=== PATIENT | female | born 1975 | race Caucasian/White ===

== ENCOUNTER → 2017-01-18 22:59 | Emergency (ER) | payer OTHER ==
[2017-01-18 22:59] VITALS: BMI 25.1
== END | disposition left against medical advice (07) ==
LOC: C.ER 22:59
DX: Z02.89 Encounter for other administrative examinations (principal); R10.9 Unspecified abdominal pain

== ENCOUNTER 2017-12-07 16:33 | Emergency (ER) | payer MEDICAID, OTHER ==
[2017-12-07 16:33] VITALS: BMI 25.1
[2017-12-07 16:53] VITALS: RESP 18
--- NOTE | 2017-12-07 17:53 | RAD ---
HISTORY: cough COMPARISON: Portable chest radiograph 10/07/2016 peer TECHNIQUE: Chest PA and lateral FINDINGS: LUNGS: No active pulmonary disease. There is interval clearing of hazy density at the inferior left lung zone. PLEURA: No significant pleural effusion identified. No pneumothorax apparent. CARDIOVASCULAR: Normal. OSSEOUS STRUCTURES: Mild scoliotic thoracic spinal changes again evident. VISUALIZED UPPER ABDOMEN: Normal. OTHER FINDINGS: None. IMPRESSION: No interval acute cardiopulmonary disease appreciated.
[2017-12-07] MEDS ORDERED: Sodium Chloride 0.9% 1,000 ML IV STA (18:07)
[2017-12-07 18:36] LABS: BASO % 0.6 % (0.0-2.0); EOS % 0.3 % (0.0-4.0); HEMOGLOBIN 13.1 g/dL (11.0-16.0); LYMPH # 0.9 K/uL (1.0-4.3); LYMPH % 17.8 % (20.0-40.0); MEAN CELL VOLUME 87.9 fL (81.0-99.0); MEAN CORPUSCULAR HEMOGLOBIN 30.1 pg (27.0-31.0); MEAN CORPUSCULAR HGB CONC 34.3 g/dL (33.0-37.0); MEAN PLATELET VOLUME 8.5 fL (7.2-11.7); MONO # 0.4 K/uL (0.0-0.8); MONO % 8.4 % (0.0-10.0); NEUT # 3.7 K/uL (1.8-7.0); NEUT % 72.9 % (50.0-75.0); NRBC % 0.1 % (0.0-2.0); RBC 4.36 Mil/uL (3.80-5.20); RED CELL DISTRIBUTION WIDTH 13.3 % (11.5-14.5); WHITE BLOOD COUNT 5.1 K/uL (4.8-10.8)
[2017-12-07 18:48] LABS: ALBUMIN 3.9 g/dL (3.5-5.0); ALT/SGPT 71 U/L (9-52); AST/SGOT 60 U/L (14-36); BLOOD UREA NITROGEN 10 mg/dL (7-17); CALCIUM 8.7 mg/dl (8.6-10.4); GFR AFRICAN-AMERICAN > 60; GFR NON-AFRICAN AMERICAN > 60
--- NOTE | 2017-12-07 20:40 | C.PDOC ---
History Of Present Illness 42 y/o female presents to the ED complaining of persistent flu-like symptoms. States she was given antibiotics (unknown) by her PMD for bronchitis asthma. Patient finished the course and taking steroids and cough medicine. Patient continues to complain of subjective fever, body aches, and occasional nausea. Time Seen by Provider: 12/07/17 17:06 Chief Complaint (Nursing): Flu-like Symptoms History Per: Patient History/Exam Limitations: no limitations Onset/Duration Of Symptoms: Days Current Symptoms Are (Timing): Still Present Past Medical History Reviewed: Historical Data, Nursing Documentation, Vital Signs Vital Signs: Last Vital Signs Temp 98.2 F 12/07/17 20:48 Pulse 84 12/07/17 20:48 Resp 18 12/07/17 20:48 BP 110/64 12/07/17 20:48 Pulse Ox 100 12/07/17 20:48 - Medical History PMH: Asthma, Bronchitis Denies: Diabetes, Hepatitis, HIV, HTN, Seizures, Sexually Transmitted Disease Surgical History: Appendectomy Family History: States: Unknown Family Hx - Social History Hx Tobacco Use: No Hx Alcohol Use: No Hx Substance Use: No - Immunization History Hx Tetanus Toxoid Vaccination: No Hx Influenza Vaccination: No Hx Pneumococcal Vaccination: No Review Of Systems Except As Marked, All Systems Reviewed And Found Negative. Constitutional: Positive for: Fever (subjective), Other (body aches) Cardiovascular: Negative for: Chest Pain Respiratory: Negative for: Shortness of Breath, Wheezing Gastrointestinal: Positive for: Nausea Physical Exam - Physical Exam Appears: Non-toxic, No Acute Distress Skin: Normal Color, Warm, Dry Head: Atraumatic, Normacephalic Eye(s): bilateral: Normal Inspection, PERRL, EOMI Ear(s): Bilateral: Normal Nose: Normal Oral Mucosa: Moist Throat: Normal, No Erythema, No Exudate Neck: Normal ROM, Supple Chest: Symmetrical Cardiovascular: Rhythm Regular, No Murmur Respiratory: Normal Breath Sounds, No Accessory Muscle Use, No Rales, No Rhonchi , No Wheezing Gastrointestinal/Abdominal: Soft, No Tenderness, No Distention Extremity: Bilateral: Atraumatic, Normal Color And Temperature, Normal ROM Neurological/Psych: Oriented x3, Normal Speech ED Course And Treatment - Laboratory Results Result Diagrams: 12/07/17 18:32 12/07/17 18:32 O2 Sat by Pulse Oximetry: 99 (RA) Pulse Ox Interpretation: Normal - Other Rad CXR X-Ray: Viewed By Me, Read By Radiologist Interpretation: FINDINGS: LUNGS: No active pulmonary disease. There is interval clearing of hazy density at the inferior left lung zone. PLEURA: No significant pleural effusion identified. No pneumothorax apparent. CARDIOVASCULAR: Normal. OSSEOUS STRUCTURES: Mild scoliotic thoracic spinal changes again evident. VISUALIZED UPPER ABDOMEN: Normal. OTHER FINDINGS: None. IMPRESSION: No interval acute cardiopulmonary disease appreciated. Medical Decision Making Medical Decision Making: Plan: --CXR --Labs --IV fluids Labs reviewed, no significant abnormalities. Patient will be discharged home. Given rx for Motrin. Disposition Counseled Patient/Family Regarding: Studies Performed, Diagnosis, Need For Followup - Disposition Disposition: HOME/ ROUTINE Disposition Time: 20:37 Condition: STABLE Additional Instructions: Follow up with PMD within 1-2 days. Return to ED if feel worse. Prescriptions: Ibuprofen [Motrin Tab] 400 mg PO Q8 #30 tab Instructions: Muscle and Bone Pain (DC) Forms: GoodRx (Azeri) - Clinical Impression Clinical Impression: Musculoskeletal pain - PA / ACQUISITION MANAGER / Resident Statement MD/DO has reviewed & agrees with the documentation as recorded. - Scribe Statement The provider has reviewed the documentation as recorded by the Scribe (Evie Siegel) All medical record entries made by the Scribe were at my direction and personally dictated by me. I have reviewed the chart and agree that the record accurately reflects my personal performance of the history, physical exam, medical decision making, and the department course for this patient. I have also personally directed, reviewed, and agree with the discharge instructions and disposition.
[2017-12-07 20:49] VITALS: BP 110/64; PULSE 84; TEMP 98.2
[2017-12-07 21:52] VITALS: O2SAT 99
== END 2017-12-07 20:49 | disposition home or self-care (01) ==
LOC: C.ER 16:33
DX: M79.1 Myalgia (principal)
CPT/HCPCS: 71046; 80053; 82550; 85025; 96360; 99284; J7040

== ENCOUNTER 2018-03-03 08:19 | Inpatient (IN) | payer MEDICAID ==
[2018-03-03 08:23] VITALS: BMI 25.9
[2018-03-03] MEDS ORDERED: Sodium Chloride 0.9% 1,000 ML IV ONE (08:41)
--- NOTE | 2018-03-03 08:53 | C.PDOC ---
History Of Present Illness 42yo-female presents to the emergency department for evaluation of drug overdose , suicidal attempt. 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 At present time, pt is AAO#3, appears depressed, crying, complaining of slight dizziness. Pt denies fever, chills, headache, visual changes, focal deficits, neck pain, CP, SOB, dyspnea, diaphoresis, abd. pain, nausea/vomiting , back pain or any other associated symptoms. Appears comfortable, not in any apparent distress. Time Seen by Provider: 03/03/18 08:24 Chief Complaint (Nursing): Psychiatric Evaluation History Per: Patient History/Exam Limitations: no limitations Current Symptoms Are (Timing): Still Present Suicide/Self Injury Attempted (Context): Ingestion Severity: Mild Past Medical History Reviewed: Historical Data, Nursing Documentation, Vital Signs Vital Signs: Last Vital Signs Temp 97.0 F L 03/03/18 11:07 Pulse 79 03/03/18 13:13 Resp 24 03/03/18 13:13 BP 90/59 L 03/03/18 13:13 Pulse Ox 99 03/03/18 13:13 - Medical History PMH: Asthma, Bronchitis Surgical History: Appendectomy Family History: States: No Known Family Hx - Social History Hx Tobacco Use: No Hx Alcohol Use: No Hx Substance Use: No - Immunization History Hx Tetanus Toxoid Vaccination: No Hx Influenza Vaccination: No Hx Pneumococcal Vaccination: No Review Of Systems Constitutional: Negative for: Fever, Chills Cardiovascular: Negative for: Chest Pain Gastrointestinal: Negative for: Nausea, Vomiting Neurological: Positive for: Dizziness Physical Exam - Physical Exam Appears: Well, Non-toxic, Other (depressed) Skin: Warm, Dry, No Rash Head: Atraumatic, Normacephalic Eye(s): bilateral: PERRL Nose: No Flaring, No Discharge Oral Mucosa: Moist Lips: Normal Appearing Throat: No Erythema, No Exudate, No Drooling Neck: Trachea Midline, Supple Cardiovascular: Rhythm Regular, No Murmur, No JVD, Other ((-) carotid bruits B/L ) Respiratory: No Decreased Breath Sounds, No Accessory Muscle Use, No Stridor, No Wheezing Gastrointestinal/Abdominal: Soft, No Tenderness, No Distention, No Guarding Back: No CVA Tenderness Extremity: Normal ROM, No Deformity, No Swelling Neurological/Psych: Oriented x3, Normal Speech, Normal Motor, Normal Sensation, Normal Reflexes ED Course And Treatment - Laboratory Results Result Diagrams: 03/03/18 08:45 03/03/18 08:45 Lab Interpretation: No Acute Changes ECG: Interpreted By Me, Viewed By Me ECG Rhythm: Sinus Rhythm Interpretation Of ECG: SR@96/min, NAD, T wave III, no acute ST-T changes. O2 Sat by Pulse Oximetry: 96 Pulse Ox Interpretation: Normal Progress Note: case discussed with Johnathon, Poison Control, blood work, OBS, sx tx recommend at this point. Pt was OBS in ED for 3 hrs, card. / PulseOx monitor and remained stable. On re-eval, pt somnolent, easily arousable to verbal stimuli. Blood work review and appears without acute abnoramlities. case discussed with PES- consult placed. case discussed with Hospitalist and admission to tele arranged with Dx: Benzo overdose, depression , suicidal attempt. Disposition - Disposition Disposition: HOSPITALIZED Disposition Time: 10:59 Condition: STABLE - Clinical Impression Clinical Impression: Drug overdose, Suicide attempt, Benzocaine poisoning - Scribe Statement The provider has reviewed the documentation as recorded by the Scribe (Mele Crockett) All medical record entries made by the Scribe were at my direction and personally dictated by me. I have reviewed the chart and agree that the record accurately reflects my personal performance of the history, physical exam, medical decision making, and the department course for this patient. I have also personally directed, reviewed, and agree with the discharge instructions and disposition.
[2018-03-03 08:55] LABS: BASO % 0.6 % (0.0-2.0); HEMOGLOBIN 13.1 g/dL (11.0-16.0); LYMPH % 16.2 % (20.0-40.0); MEAN CELL VOLUME 88.7 fL (81.0-99.0); MEAN CORPUSCULAR HEMOGLOBIN 30.5 pg (27.0-31.0); MEAN CORPUSCULAR HGB CONC 34.4 g/dL (33.0-37.0); MEAN PLATELET VOLUME 8.9 fL (7.2-11.7); MONO # 0.5 K/uL (0.0-0.8); MONO % 8.6 % (0.0-10.0); NEUT # 4.7 K/uL (1.8-7.0); NEUT % 74.6 % (50.0-75.0); NRBC % 0.2 % (0.0-2.0); RBC 4.29 Mil/uL (3.80-5.20); WHITE BLOOD COUNT 6.3 K/uL (4.8-10.8)
[2018-03-03 09:11] LABS: ACETAMINOPHEN < 10.0 ug/mL (10.0-30.0); ALB/GLOB RATIO 1.2 (1.0-2.1); ALBUMIN 4.7 g/dL (3.5-5.0); ALT/SGPT 18 U/L (9-52); AST/SGOT 28 U/L (14-36); BLOOD UREA NITROGEN 10 mg/dL (7-17); GFR AFRICAN-AMERICAN > 60; GFR NON-AFRICAN AMERICAN > 60; LIPASE 102 U/L (23-300); SALICYLATE < 1.0 mg/dL 1
--- NOTE | 2018-03-03 10:50 | RAD ---
Date of service: 03/03/2018 PROCEDURE: CHEST RADIOGRAPH, 1 VIEW HISTORY: Detox/Psy COMPARISON: 12/07/2017. FINDINGS: LUNGS: Clear. PLEURA: No pneumothorax or pleural fluid seen. CARDIOVASCULAR: Normal. OSSEOUS STRUCTURES: No significant abnormalities. VISUALIZED UPPER ABDOMEN: Normal. OTHER FINDINGS: None. IMPRESSION: No active disease. No acute/significant interval changes.
[2018-03-03 11:30] LABS: HCG,QUALITATIVE URINE NEGATIVE (NEGATIVE)
[2018-03-03 11:37] LABS: SQUAMOUS EPITHIAL 4 /hpf (0-5); URINE BILIRUBIN NEGATIVE (NEGATIVE); URINE BLOOD NEGATIVE (NEGATIVE); URINE CLARITY Clear (Clear); URINE COLOR Yellow (YELLOW); URINE GLUCOSE (UA) NORMAL (Normal); URINE LEUKOCYTE ESTERASE NEG Leu/uL (Negative); URINE PROTEIN NEGATIVE (NEGATIVE); URINE UROBILINOGEN NORMAL mg/dL (0.2-1.0)
[2018-03-03 11:46] LABS: BARBITURATES, UR NEGATIVE (NEGATIVE); BENZODIAZEPINES, UR NEGATIVE (NEGATIVE); OPIATES, UR NEGATIVE (NEGATIVE); PHENCYCLIDINE, UR NEGATIVE (NEGATIVE)
[2018-03-03] MEDS ORDERED: Lactated Ringer's 1,000 ML IV SCH (12:15)
--- NOTE | 2018-03-03 12:41 | CT ---
Date of service: 03/03/2018 PROCEDURE: CT HEAD WITHOUT CONTRAST. HISTORY: S the the uicidal attempts COMPARISON: Comparison made with CT scan brain 11/27/2019. TECHNIQUE: Axial computed tomography images were obtained through the head/brain without intravenous contrast. Radiation dose: Total exam DLP = 853.34 mGy-cm. This CT exam was performed using one or more of the following dose reduction techniques: Automated exposure control, adjustment of the mA and/or kV according to patient size, and/or use of iterative reconstruction technique. FINDINGS: HEMORRHAGE: No intracranial hemorrhage. BRAIN: No mass effect or edema. No atrophy or chronic microvascular ischemic changes. VENTRICLES: Unremarkable. No hydrocephalus. CALVARIUM: Unremarkable. PARANASAL SINUSES: Unremarkable as visualized. No significant inflammatory changes. MASTOID AIR CELLS: Unremarkable as visualized. No inflammatory changes. OTHER FINDINGS: None. IMPRESSION: Normal CT of the Head.
--- NOTE | 2018-03-03 14:43 | PCM.PSYCH ---
Initial Psychiatric Evaluation - Initial Psychiatric Evaluation Type of Admission: Voluntary Legal Status: Capacity Chief Complaint (in patient's own words): "I attempted suicide" History of Present Illness and Precipitating Events: She is seen, chart reviewed, case discussed Consult was requested for her depression, suicide attempt. Ms. Morales is a 42[facility] who is with three children (19, 24, 25 y/o), and the 24-year-old still lives with them in their apartment. The filed for divorce 3 days ago. She has been depressed for the past month because she was having a lot of problems with her . Her has been accusing her of sleeping with the 's brother. Her sleep has gone down to 3 hours per night within the last month. She has had suicidal ideations for the past 2 weeks, but hadn't attempted suicide until yesterday. Yesterday she didn't feel good because she had been arguing with her at 9pm and then at 12am she tried to commit suicide by swallowing 10 pills of 's clonazepam. She said she felt like she didn't care what happened to her. She did not tell anyone or write a suicide note. The son brought her to the hospital. She says she is doing a little better today. She does not have suicidal ideation, she does not have homicidal ideations. She has auditory hallucinations that tell her to kill herself sometimes. Pt says she has paranoia, as if someone is following or watching her. She experiences anxiety, especially when out in public. She says she worries a lot. The anxiety started 2 years ago when her youngest son joined the army. She does not take any medication other than Dibuterol for asthma. Past Psych: none Past Medical Hx: Asthma Family Hx: none Current Medications: Active Medications Generic Name Dose Route Start Last Admin Trade Name Freq PRN Reason Stop Dose Admin Heparin Sodium (Porcine) 5,000 units 03/03/18 14:00 03/03/18 14:40 Heparin SC 5,000 units Q8 KATELYNN Administration Lactated Ringer's 1,000 mls @ 100 mls/hr 03/03/18 12:15 03/03/18 14:41 Lactated Ringer's IV 100 mls/hr .Q10H KATELYNN Administration Past Psychiatric History - Past Psychiatric History Previous Treatment History: None Pertinent Medical Hx (Current Medical&Sleep Prob, Allergies): Allergies Allergy/AdvReac Type Severity Reaction Status Date / Time Penicillins Allergy Verified 03/03/18 08:23 Naproxen [Naprosyn] 1 tab PO BID PRN #15 tab 10/07/16 Nitrofurantoin Macrocrystals [Macrobid] 1 cap PO BID #14 cap 10/07/16 Ibuprofen [Motrin Tab] 400 mg PO Q8 #30 tab 12/07/17 Review of Systems - Neurological Neurological: UNREMARKABLE - Psychiatric Psychiatric: Abnormal Sleep Pattern, Anhedonia, Anxiety, Depression, Difficulty Concentrating, Hallucinations, Paranoia, Suicidal Ideation. absent: Homicidal Ideation Mental Status Examination - Personal Presentation Personal Presentation: Looks older than stated age - Affect Affect: Constricted - Motor Activity Motor Activity: Calm - Reliability in Providing Information Reliability in Providing Information: Good - Speech Speech: Organized - Mood Mood: Depressed - Formal Thought Process Formal Thought Process: Hallucinations, Paranoia - Cognitive Functions Orientation: Person, Place, Situation, Time Sensorium: Alert Attention/Concentration: Attentive Estimate of Intelligence: Average Judgement: Imparied, as evidence by: Poor judgement Memory: Recent intact, as evidence by: Ability to recall events of the day, Remote intact, as evidenced by: Abilit to recall sig. life events - Risk Risk: Diminished functioning - Strength & Assets Inventory Strength & Assets Inventory: Cooperative - Limitations Limitations: Other DSM 5 DX - DSM 5 DSM 5 Diagnosis: Major Depressive Disorder, single with psychotic symptoms, severe Generalized Anxiety Disorder - Recommended/Plan of Treatment Treatment Recommendations and Plan of Treatment: Start Remeron Prn medications All risks, benefits and alternatives of medications, including no medications, discussed and the patient understood and agreed. Attend groups and activities Individual therapy Psychoeducation and support Encourage compliance with meds and after care Refer to outpatient program Teach healthy lifestyle methods, i.e. diet, exercise, meditation Smoking cessation 32 min
--- NOTE | 2018-03-03 14:49 | CP.PCM.HP ---
<Uriel Alaniz - Last Filed: 03/03/18 17:01> History of Present Illness - History of Present Illness History of Present Illness: PGY-1 H&P note for Hospitalist Dr Alas service cc: benzo overdose HPI: Patient is a 42 year old female that presents to ER for drug overdose. Patient states she had an argument with her at 12:00 am of today. Patient states left the house and she took 12 pills of clonazepan 1gm each that belongs to her . Patient says subsequently started to feel very tired and dizzy. After that her son took her to the ED. Patient denies losing consciousness during the event. Patient denies drinking alcohol or using any type of illicit drug use. Patient is AAOx3. Patient admits to some chest pain and palpitations. Patient admits not having eaten anything or sleeping since Wednesday because she feels depressed. Patient denies any headache, fever, chills, SOB, chest pain, nausea, vomiting, diarrhea or constipation. Patient is very sleepy and weak at time of the encounter, and keeps falling asleep but is able to respond to questions. PMD: Zaheer Mosquera All: Penicillin PMHx: Asthma Shx: appendicits (15 years ago) Family history: cancer (mother and grandmother) Social Hx: denies tobacco, alcohol or illicit drug use. Pt is currently unemployed and lives with and her children. Meds: albuterol (via nebulizer) PRN Present on Admission - Present on Admission Any Indicators Present on Admission: No Review of Systems - Constitutional Constitutional: Fatigue, Weight Loss. absent: Anorexia, Chills, Excessive Sweating, Fever, Headache Additional comments: patient has lost 5 lbs in last week - EENT Eyes: absent: Blurred Vision, Change in Vision, Loss of Vision Ears: absent: Decreased Hearing Nose/Mouth/Throat: absent: Dry Mouth, Sore Throat - Cardiovascular Cardiovascular: Chest Pain. absent: Diaphoresis, Dyspnea, Edema, Leg Edema, Lightheadedness, Palpitations, Radiating Pain - Respiratory Respiratory: absent: Cough, Dyspnea, Wheezing - Gastrointestinal Gastrointestinal: absent: Abdominal Pain, Constipation, Diarrhea, Nausea, Vomiting - Genitourinary Genitourinary: absent: Dysuria - Musculoskeletal Musculoskeletal: absent: Back Pain, Radiating Pain into Limb - Neurological Neurological: Weakness. absent: Abnormal Hearing, Dizziness, Frequent Falls, Headaches, Lack of Coordination, Loss of Vision, Vertigo - Psychiatric Psychiatric: Depression. absent: Anxiety - Endocrine Endocrine: absent: Palpitations Past Patient History - Infectious Disease Hx of Infectious Diseases: None - Past Social History Smoking Status: Never Smoked - CARDIAC Hx Hypertension: No - PULMONARY Hx Asthma: Yes Hx Bronchitis: Yes - NEUROLOGICAL Hx Seizures: No - HEMATOLOGICAL/ONCOLOGICAL Hx Human Immunodeficiency Virus (HIV): No - GENITOURINARY/GYNECOLOGICAL Hx Sexually Transmitted Disorders: No - PSYCHIATRIC Hx Substance Use: No - SURGICAL HISTORY Hx Appendectomy: Yes - ANESTHESIA Hx Anesthesia: Yes Hx Anesthesia Reactions: No Meds Allergies/Adverse Reactions: Allergies Allergy/AdvReac Type Severity Reaction Status Date / Time Penicillins Allergy Verified 03/03/18 08:23 Physical Exam - Constitutional Appears: Well, Non-toxic, No Acute Distress - Head Exam Head Exam: ATRAUMATIC, NORMAL INSPECTION, NORMOCEPHALIC - Eye Exam Eye Exam: EOMI, Normal appearance, PERRL Pupil Exam: NORMAL ACCOMODATION, PERRL - ENT Exam ENT Exam: Mucous Membranes Moist, Normal Exam - Neck Exam Neck exam: Positive for: Normal Inspection - Respiratory Exam Respiratory Exam: Clear to Auscultation Bilateral, NORMAL BREATHING PATTERN. absent: Rales, Rhonchi, Wheezes - Cardiovascular Exam Cardiovascular Exam: REGULAR RHYTHM, +S1, +S2 - GI/Abdominal Exam GI & Abdominal Exam: Normal Bowel Sounds, Tenderness. absent: Bruit, Distended , Mass, Rebound Additional comments: Left lower quadrant pain on deep palpation - Neurological Exam Neurological exam: Alert, Oriented x3 - Psychiatric Exam Psychiatric exam: Depressed - Skin Skin Exam: Dry, Intact, Normal Color Results - Vital Signs Recent Vital Signs: Last Vital Signs Temp 98.7 F 03/03/18 13:48 Pulse 89 03/03/18 13:48 Resp 16 03/03/18 13:48 BP 97/65 L 03/03/18 13:48 Pulse Ox 99 03/03/18 13:48 - Labs Result Diagrams: 03/03/18 08:45 03/03/18 08:45 Labs: Laboratory Results - last 24 hr 03/03/18 03/03/18 03/03/18 08:45 08:45 08:45 WBC 6.3 RBC 4.29 Hgb 13.1 Hct 38.0 MCV 88.7 MCH 30.5 MCHC 34.4 RDW 14.0 Plt Count 289 D MPV 8.9 Neut % (Auto) 74.6 Lymph % (Auto) 16.2 L Mills % (Auto) 8.6 Eos % (Auto) 0.0 Baso % (Auto) 0.6 Neut # (Auto) 4.7 Lymph # (Auto) 1.0 Mills # (Auto) 0.5 Eos # (Auto) 0.0 Baso # (Auto) 0.0 Sodium 141 Potassium 3.6 Chloride 104 Carbon Dioxide 19 L Anion Gap 21 H BUN 10 Creatinine 0.6 L Est GFR ( Amer) > 60 Est GFR (Non-Af Amer) > 60 Random Glucose 146 H Calcium 10.0 Total Bilirubin 1.0 AST 28 ALT 18 Alkaline Phosphatase 76 Total Protein 8.5 H Albumin 4.7 Globulin 3.8 Albumin/Globulin Ratio 1.2 Lipase 102 Urine Color Urine Clarity Urine pH Ur Specific [place] Urine Protein Urine Glucose (UA) Urine Ketones Urine Blood Urine Nitrate Urine Bilirubin Urine Urobilinogen Ur Leukocyte Esterase Urine WBC (Auto) Ur Squamous Epith Cells Urine HCG, Qual Salicylates < 1.0 Urine Opiates Screen Urine Methadone Screen Acetaminophen < 10.0 L Ur Barbiturates Screen Ur Phencyclidine Scrn Ur Amphetamines Screen U Benzodiazepines Scrn U Oth Cocaine Metabols U Cannabinoids Screen Alcohol, Quantitative < 10 03/03/18 03/03/18 11:18 11:18 WBC RBC Hgb Hct MCV MCH MCHC RDW Plt Count MPV Neut % (Auto) Lymph % (Auto) Mills % (Auto) Eos % (Auto) Baso % (Auto) Neut # (Auto) Lymph # (Auto) Mills # (Auto) Eos # (Auto) Baso # (Auto) Sodium Potassium Chloride Carbon Dioxide Anion Gap BUN Creatinine Est GFR ( Amer) Est GFR (Non-Af Amer) Random Glucose Calcium Total Bilirubin AST ALT Alkaline Phosphatase Total Protein Albumin Globulin Albumin/Globulin Ratio Lipase Urine Color Yellow Urine Clarity Clear Urine pH 6.0 Ur Specific [place] 1.011 Urine Protein Negative Urine Glucose (UA) Normal Urine Ketones 1+ H Urine Blood Negative Urine Nitrate Negative Urine Bilirubin Negative Urine Urobilinogen Normal Ur Leukocyte Esterase Neg Urine WBC (Auto) 2 Ur Squamous Epith Cells 4 Urine HCG, Qual Negative Salicylates Urine Opiates Screen Negative Urine Methadone Screen Negative Acetaminophen Ur Barbiturates Screen Negative Ur Phencyclidine Scrn Negative Ur Amphetamines Screen Negative U Benzodiazepines Scrn Negative U Oth Cocaine Metabols Negative U Cannabinoids Screen Positive H Alcohol, Quantitative Assessment & Plan - Assessment and Plan (Free Text) Plan: Benzodiazepine Overdose -Drug screen, Urine: Positive for Cannabinoids, negative for benzodiazepines -Alcohol serum: negative -Acetaminophen serum: less than 10.0 -Lipase: normal -Salicylate: negative -CBC: 6.3>13.1/38.0<289 -CMP: 141/3.6/104/19/10/0.6 < 146, ALT18, AST 28 -03/03: EKG --> SR@96/min, NAD, T wave III, no acute ST-T changes. -03/03 Chest xray: no active disease -03/01 CT head without contrast: normal CT of head -Psych Consult - Dr. Flowers - help is appreciated -1:1 observation, continue -HCG urine test: negative -U/A: 1+ ketones -Lactated ringer IVPB give one bag -Patient is on Tele, monitor BP, HR (currently BP 96/59, HR 91) - F/U Am labs (CBC, CMP) Depression/anxiety/suicidal attempt - Trazodone 50mg PO HS PRN - Mirtazapine 15mg PO HS -Hydroxyzine (Atarax) 15mg PO Q6hrs PRN -1:1 observation -Will keep monitoring on tele, if stable, will transfer to psych unit [facility] Asthma, Hx of - stable - Consider albuterol PRN if Sxm of SOB Prophylaxis - DVT: Heparin 5000 units SC Q8hrs - GI: not indicated - HHD 2gm sodium - Ibuprofen 600mg PO Q6 for moderate pain Plan was discussed with Dr. Evette Alaniz PGY-1 - Date & Time Date: 03/03/18 Time: 17:13 <Boo Alas - Last Filed: 03/11/18 10:40> Results - Vital Signs Recent Vital Signs: Last Vital Signs Temp 98 F 03/10/18 06:45 Pulse 106 H 03/11/18 09:35 Resp 18 03/10/18 06:45 BP 105/70 03/11/18 09:35 Pulse Ox 98 03/10/18 06:45 - Labs Result Diagrams: 03/03/18 08:45 03/03/18 08:45 Attending/Attestation - Attestation I have personally seen and examined this patient.: Yes I have fully participated in the care of the patient.: Yes I have reviewed all pertinent clinical information: Yes Notes (Text): seen and examined in the ER with the resident . Patient was sleepy,but arousable ,oriented x3 continue 1;1 observation,tele observation,psychiatry consult. Assessment and the plan discussed with the resident
--- NOTE | 2018-03-04 13:29 | PCM.BM ---
<Yaritza Gómezn - Last Filed: 03/04/18 13:28> Treatment Plan Problems - Problems identified on initial assessmt Depression Date Initiated: 03/04/18 Time Initiated: 13:28 Assessment reference: NA Status: Active Suicidal Ideation Date Initiated: 03/04/18 Time Initiated: 13:28 Assessment reference: NA Status: Monitor Treatment assets and liabiliti Patient Assests: cooperative, ADL independent, physically healthy, good support system, cognitively intact Patient Liabilities: relationship conflicts - Milieu Protocol Maintain good personal hygiene: daily Encourage regular showers, daily Remind patient to perform daily oral care, daily Assist patient to perform ADL's Conduct patient checks and document Observation sheet: Q15 minutes Maintain personal safety: every shift Educate patient to report safety concerns to staff, every shift Monitor environment for contraband/sharps Medication safety: Monitor for expected outcome, potential side effects: every shift, Assess barriers to learning: every shift, Assess readiness for medication education: every shift Milieu Narrative: Start Remeron Prn medications All risks, benefits and alternatives of medications, including no medications, discussed and the patient understood and agreed. Attend groups and activities Individual therapy Psychoeducation and support Encourage compliance with meds and after care Refer to outpatient program Teach healthy lifestyle methods, i.e. diet, exercise, meditation Smoking cessation 32 min Discharge/Continuing Care - Treatment Team Participation Patient/Family/SO Statement: Start Remeron Prn medications All risks, benefits and alternatives of medications, including no medications, discussed and the patient understood and agreed. Attend groups and activities Individual therapy Psychoeducation and support Encourage compliance with meds and after care Refer to outpatient program Teach healthy lifestyle methods, i.e. diet, exercise, meditation Smoking cessation 32 min <Lnany Weber - Last Filed: 03/07/18 10:55> - Diagnosis (1) Major depressive disorder Status: Acute Interventions: 03/07/18 10:55 * Assess/adjust medications daily and /or as needed * See patient on an individual basis 7x/week to assess symptoms of depression * Monitor for side effects & effectiveness of medications * <Hattie Franks - Last Filed: 03/07/18 14:32> Family Contact Family involvement: Famliy/SO not involved - Goals for Treatment Patient goals for treatment: "I want to go home soon." Discharge/Continuing Care - Education Needs Education Needs: Patient Medication, Patient Coping Skills - Discharge Discharge Criteria: Tolerates medication w/o severe side effects, Free of Suicidal thoughts, Reduction of target symptoms Discharge to:: Home - Treatment Team Participation Discussed with Family/SO: No Was Patient/Family/SO present at Treatment Team Meeting: Yes
--- NOTE | 2018-03-04 15:37 | CP.PCM.PN ---
<PachecoNataleeBib M - Last Filed: 03/04/18 18:18> Subjective - Date & Time of Evaluation Date of Evaluation: 03/04/18 Time of Evaluation: 07:15 - Subjective Subjective: PGY1 Resident note for Dr. Alas. Patient seen and examined at bedside. Patient is with one to one and no overnight events. Patient denies chest pain, difficulty breathing, constipation , trouble voiding. Patient states she feels tired because she has not been sleeping well. Patient is amendable to psychiatric treatment. Patient is currently on one to one, on telemetry. Objective - Vital Signs/Intake and Output Vital Signs (last 24 hours): Temp Pulse Resp BP Pulse Ox 97.6 F 79 19 113/71 98 03/04/18 13:41 03/04/18 13:41 03/04/18 13:41 03/04/18 13:41 03/04/18 07:00 Intake and Output: 03/04/18 03/04/18 06:59 18:59 Intake Total 1075 Balance 1075 - Medications Medications: Current Medications Heparin Sodium (Porcine) (Heparin) 5,000 units SC Q8 [facility] Last Admin: 03/04/18 13:12 Dose: Not Given Hydroxyzine HCl (Atarax) 25 mg PO Q6H PRN PRN Reason: Anxiety Ibuprofen (Motrin Tab) 600 mg PO Q6H PRN PRN Reason: Pain, moderate (4-7) Mirtazapine (Remeron) 15 mg PO HS [facility] Last Admin: 03/03/18 21:49 Dose: 15 mg Trazodone HCl (Desyrel) 50 mg PO HS PRN PRN Reason: Insomnia - Labs Labs: 03/03/18 08:45 03/03/18 08:45 - Constitutional Appears: Well, Non-toxic, No Acute Distress - Head Exam Head Exam: ATRAUMATIC, NORMAL INSPECTION, NORMOCEPHALIC - Eye Exam Eye Exam: EOMI, Normal appearance Pupil Exam: NORMAL ACCOMODATION, PERRL - ENT Exam ENT Exam: Mucous Membranes Moist, Normal Exam - Neck Exam Neck Exam: Full ROM - Respiratory Exam Respiratory Exam: Clear to Ausculation Bilateral, NORMAL BREATHING PATTERN. absent: Rales, Rhonchi, Wheezes - Cardiovascular Exam Cardiovascular Exam: +S1, +S2, Murmur. absent: Irregular Rhythm - GI/Abdominal Exam GI & Abdominal Exam: Soft, Normal Bowel Sounds. absent: Distended, Firm, Guarding, Rigid - Extremities Exam Extremities Exam: Full ROM, Normal Capillary Refill, Normal Inspection - Neurological Exam Neurological Exam: Alert, Awake, Oriented x3 - Psychiatric Exam Psychiatric exam: Normal Affect, Normal Mood - Skin Skin Exam: Dry, Intact, Normal Color, Warm Assessment and Plan - Assessment and Plan (Free Text) Assessment: 42 year old female patient admitted due to over ingesting benzodiazepine: Benzodiazepine Overdose 03/04: -Drug screen, Urine: Positive for Cannabinoids, negative for benzodiazepines -Alcohol serum: negative -Acetaminophen serum: less than 10.0 -Lipase: normal -Salicylate: negative -03/03: EKG --> SR@96/min, NAD, T wave III, no acute ST-T changes. -03/03 Chest xray: no active disease -03/01 CT head without contrast: normal CT of head -Psych Consult - Dr. Flowers - help is appreciated -1:1 observation, continue -HCG urine test: negative -U/A: 1+ ketones -Lactated ringer IVPB give one bag -Patient is on Tele, monitor BP, HR (currently BP 96/59, HR 91) -AM Labs WNL - vitals stable WNL Depression/anxiety/suicidal attempt - Trazodone 50mg PO HS PRN - Mirtazapine 15mg PO HS -Hydroxyzine (Atarax) 15mg PO Q6hrs PRN -1:1 observation -Will keep monitoring on tele, if stable, will transfer to psych unit [facility] Asthma, Hx of - stable - Consider albuterol PRN if Sxm of SOB Prophylaxis - DVT: Heparin 5000 units SC Q8hrs - GI: not indicated - HHD 2gm sodium - Ibuprofen 600mg PO Q6 for moderate pain Patient vitals are within normal limits, labs are within normal llimts. Patient is cleared medically and will sign off. <Boo Alas - Last Filed: 03/14/18 16:38> Objective - Vital Signs/Intake and Output Vital Signs (last 24 hours): Temp Pulse Resp BP Pulse Ox 98 F 106 H 18 105/70 98 03/10/18 06:45 03/11/18 09:35 03/10/18 06:45 03/11/18 09:35 03/10/18 06:45 - Labs Labs: 03/03/18 08:45 03/03/18 08:45 Attending/Attestation - Attestation I have personally seen and examined this patient.: Yes I have fully participated in the care of the patient.: Yes I have reviewed all pertinent clinical information, including history, physical exam and plan: Yes Notes (Text): Seen and examined and I agree with the resident's documentation.She is medically stable for psychiatry admission
[2018-03-04 16:35] LABS: BARBITURATES, UR NEGATIVE (NEGATIVE); BENZODIAZEPINES, UR NEGATIVE (NEGATIVE); OPIATES, UR NEGATIVE (NEGATIVE); PHENCYCLIDINE, UR NEGATIVE (NEGATIVE)
--- NOTE | 2018-03-04 17:56 | CARD ---
APPROVED REPORT Date of service: 03/03/2018 EKG Measurement Heart [id number] <Conclusion> Normal sinus rhythm Nonspecific ST and T wave abnormality Abnormal ECG
[2018-03-05] MEDS ORDERED: Albuterol HFA 90 mcg/actuation (8 g) INH PRN (04:45)
--- NOTE | 2018-03-05 13:44 | PCM.PYCHPN ---
Psychiatric Progress Note - Psychiatric Progress Note Patient seen today, length of contact: 17 min Patient Chief Complaint: "I am not well" Problems Identified/Issues Discussed: The pt is seen, chart reviewed, case discussed with staff. The pt is compliant with medications and reports no side-effects, except for ongoing dizziness. Symptoms are improving but needs more time to stabilize. Still very depressed, at times suicidal, but no plan/intention. Pt attends activities. Support given, psycho-education provided. After care discussed. Open to outpatient treatment Medication Change: Yes Medical Record Reviewed: Yes Mental Status Examination - Cognitive Function Orientation: Person, Place, Situation, Time Memory: Impaired Attention: Poor Concentration: Poor Association: WNL Fund of Knowledge: WNL - Mood Mood: Depressed - Affect Affect: Constricted - Formal Thought Process Formal Thought Process: Paranoia - Suicidal Ideation Suicidal Ideation: Yes Plan: no plan, no intention. Contracts for safety, placed in observation room - Homicidal Ideation Homicidal Ideation: No Goal/Treatment Plan - Goal/Treatment Plan Need for Continued Stay: Severe depression anxiety, Discharge may exacerbated symptoms, Severe functional impairment Progress Toward Problem(s) and Goals/Treatment Plan: Remeron and lexapro for depression Prn medications All risks, benefits and alternatives of medications, including no medications, discussed and the patient understood and agreed. Attend groups and activities Individual therapy Psychoeducation and support Encourage compliance with meds and after care Refer to outpatient program Teach healthy lifestyle methods, i.e. diet, exercise, meditation Smoking cessation Estimated Date of D/C: 03/09/18
--- NOTE | 2018-03-06 19:35 | PCM.PYCHPN ---
Psychiatric Progress Note - Psychiatric Progress Note Patient seen today, length of contact: 18 min Patient Chief Complaint: "I am still very depressed" Problems Identified/Issues Discussed: The pt is seen, chart reviewed, case discussed with staff. The pt is compliant with medications and reports no side-effects, except for sedation which is likely from the klonopin OD. She says she was suicidal yesterday but not today, but then her nurse called me to say she still had some thoughts on and off but contracted for safety. She agreed to follow her safety plan and call the nurses if she has an intention or urge. She is in observation room and will be kept under all-time observation. She is given support with good response Sx management discussed Lexapro increased prn ativan given Medication Change: Yes (see hpi) Medical Record Reviewed: Yes Mental Status Examination - Cognitive Function Orientation: Person, Place, Situation, Time Memory: Impaired Attention: Poor Concentration: Poor Association: WNL Fund of Knowledge: WNL - Mood Mood: Depressed - Affect Affect: Constricted - Speech Speech: Soft - Formal Thought Process Formal Thought Process: Paranoia - Suicidal Ideation Suicidal Ideation: Yes Plan: No plan, urge, intention. - Homicidal Ideation Homicidal Ideation: No Goal/Treatment Plan - Goal/Treatment Plan Need for Continued Stay: Severe depression anxiety, Discharge may exacerbated symptoms, Severe functional impairment Progress Toward Problem(s) and Goals/Treatment Plan: Remeron and lexapro for depression Prn medications All risks, benefits and alternatives of medications, including no medications, discussed and the patient understood and agreed. Attend groups and activities Individual therapy Psychoeducation and support Encourage compliance with meds and after care Refer to outpatient program Teach healthy lifestyle methods, i.e. diet, exercise, meditation Estimated Date of D/C: 03/09/18
--- NOTE | 2018-03-07 10:55 | PCM.PYCHPN ---
Psychiatric Progress Note - Psychiatric Progress Note Patient seen today, length of contact: 18 min Patient Chief Complaint: "I feel little better" Problems Identified/Issues Discussed: The patient was seen chart discussed and reviewed with the nurse. The patient states that she feels better and is no longer feeling suicidal. She states that she feels that dealing with her 's schizophrenia lead her take the drastic decision of ending her life. She states she realizes this was the wrong thingto do and hopes to feel better Patient seen and evaluated, chart reviewed and discussed with the nurse. Pt reports depressed mood, feelings of hopelessness and helplessness. She remained isolated and withdrawn, and confined to her room. She denies any AVH or any paranoia. Patient is compliant with medications and denies any side effects. Symptoms are improving but pt needs more time to stabilize. Support and psychoeducation given. Medication Change: Yes (increase lexapro, increase mirtazapine) Medical Record Reviewed: Yes Mental Status Examination - Cognitive Function Orientation: Person, Place, Situation, Time Memory: Impaired Attention: WNL Concentration: Poor Association: WNL Fund of Knowledge: Poor - Mood Mood: Depressed - Affect Affect: Constricted - Speech Speech: Soft - Formal Thought Process Formal Thought Process: No Impairment - Suicidal Ideation Suicidal Ideation: No - Homicidal Ideation Homicidal Ideation: No Goal/Treatment Plan - Goal/Treatment Plan Need for Continued Stay: Severe depression anxiety, Discharge may exacerbated symptoms, Severe functional impairment Progress Toward Problem(s) and Goals/Treatment Plan: [id number] mg PO daily Atarax 25 mg PO Q6 PRN Mirtazapine 30 mg Trazadone 50 mg Support and psychoeducation given, CBT and PA used briefly No new symptoms reported, improving slowly and needs more time No SEs from medications, risks discussed. After care discussed Estimated Date of D/C: 03/09/18 - Smoking Cessation Smoking Cessation Initiated: No
--- NOTE | 2018-03-08 14:28 | PCM.PYCHPN ---
Psychiatric Progress Note - Psychiatric Progress Note Patient seen today, length of contact: 18 min Patient Chief Complaint: "I feel much better" Problems Identified/Issues Discussed: Patient seen chart discussed and reviewed with nurse. The patient states that she feels much better today and she slept well overnight. She states that she is ready to go home and speaks to her who is at another hospital everyday. The patient states that she has her daughter to support her at home. She denies any suicidal or homicidal ideations. Symptoms are improving but pt needs more time to stabilize. Support and psychoeducation given. Medication Change: Yes (increase lexapro, increase mirtazapine) Medical Record Reviewed: Yes Mental Status Examination - Cognitive Function Orientation: Person, Place, Situation, Time Memory: Impaired Attention: WNL Concentration: Poor Association: WNL Fund of Knowledge: Poor - Mood Mood: Depressed - Affect Affect: Constricted - Speech Speech: Soft - Formal Thought Process Formal Thought Process: No Impairment - Suicidal Ideation Suicidal Ideation: No - Homicidal Ideation Homicidal Ideation: No Goal/Treatment Plan - Goal/Treatment Plan Need for Continued Stay: Severe depression anxiety, Discharge may exacerbated symptoms, Severe functional impairment Progress Toward Problem(s) and Goals/Treatment Plan: The pt is seen, chart reviewed, case discussed with staff. [id number] mg PO daily Atarax 25 mg PO Q6 PRN Mirtazapine 30 mg Trazadone 50 mg Support and psychoeducation given, CBT and AR used briefly No new symptoms reported, improving slowly and needs more time No SEs from medications, risks discussed. After care discussed Estimated Date of D/C: 03/09/18
[2018-03-09 06:21] VITALS: RESP 18
--- NOTE | 2018-03-09 10:34 | PCM.PYCHPN ---
Psychiatric Progress Note - Psychiatric Progress Note Patient seen today, length of contact: 18 min Patient Chief Complaint: "I feel good" Problems Identified/Issues Discussed: Patient seen chart discussed and reviewed with nurse. The patient states that she feels much better today and she slept well overnight. She states that she is doing well with her family and is in touch with them. Medication Change: Yes (increase lexapro, increase mirtazapine) Medical Record Reviewed: Yes Mental Status Examination - Cognitive Function Orientation: Person, Place, Situation, Time Memory: Impaired Attention: WNL Concentration: Poor Association: WNL Fund of Knowledge: Poor - Mood Mood: Depressed - Affect Affect: Constricted - Speech Speech: Soft - Formal Thought Process Formal Thought Process: No Impairment - Suicidal Ideation Suicidal Ideation: No - Homicidal Ideation Homicidal Ideation: No Goal/Treatment Plan - Goal/Treatment Plan Need for Continued Stay: Severe depression anxiety, Discharge may exacerbated symptoms, Severe functional impairment Progress Toward Problem(s) and Goals/Treatment Plan: The pt is seen, chart reviewed, case discussed with staff. [id number] mg PO daily Atarax 25 mg PO Q6 PRN Mirtazapine 30 mg Trazadone 50 mg Support and psychoeducation given, CBT and [place] used briefly No new symptoms reported, improving slowly and needs more time No SEs from medications, risks discussed. After care discussed Estimated Date of D/C: 03/09/18
[2018-03-10 06:46] VITALS: TEMP 98; O2SAT 98
[2018-03-11 09:35] VITALS: BP 105/70; PULSE 106
--- NOTE | 2018-03-11 09:44 | PCM.PYCHPN ---
Psychiatric Progress Note - Psychiatric Progress Note Patient seen today, length of contact: 18 min Patient Chief Complaint: "I feel good" Problems Identified/Issues Discussed: Patient seen chart discussed and reviewed with nurse. The patient states that she feels much better today and she slept well overnight. She states that she is doing well with her family and is in touch with them. Medication Change: Yes (increase lexapro, increase mirtazapine) Medical Record Reviewed: Yes Mental Status Examination - Cognitive Function Orientation: Person, Place, Situation, Time Memory: Impaired Attention: WNL Concentration: Poor Association: WNL Fund of Knowledge: Poor - Mood Mood: Depressed - Affect Affect: Constricted - Speech Speech: Soft - Formal Thought Process Formal Thought Process: No Impairment - Suicidal Ideation Suicidal Ideation: No - Homicidal Ideation Homicidal Ideation: No Goal/Treatment Plan - Goal/Treatment Plan Need for Continued Stay: Severe depression anxiety, Discharge may exacerbated symptoms, Severe functional impairment Progress Toward Problem(s) and Goals/Treatment Plan: The pt is seen, chart reviewed, case discussed with staff. [id number] mg PO daily Atarax 25 mg PO Q6 PRN Mirtazapine 30 mg Trazadone 50 mg Support and psychoeducation given, CBT and PR used briefly No new symptoms reported, improving slowly and needs more time No SEs from medications, risks discussed. After care discussed Estimated Date of D/C: 03/09/18
--- NOTE | 2018-03-11 09:48 | PCM.PYCHDC ---
Mental Status Examination - Mental Status Examination Orientation: Person, Place, Situation, Time Memory: Intact Mood: Neutral Affect: Constricted Speech: Soft Attention: WNL Concentration: WNL Association: WNL Fund of Knowledge: WNL Formal Thought Process: No Impairment Description of patient's judgement and insight: good, fair Psychotic Thoughts and Behaviors: denies any AVH Suicidal Ideation: No Current Homicidal Ideation?: No Discharge Summary - Discharge Note Reason for Hospitalization: Ms. Morales is a 42-year-old [facility] [place] female who is with three children (19, 24, 25 y/o), and the 24-year-old still lives with them in their apartment. The filed for divorce 3 days ago. She has been depressed for the past month because she was having a lot of problems with her . Her has been accusing her of sleeping with the 's brother. Her sleep has gone down to 3 hours per night within the last month. She has had suicidal ideations for the past 2 weeks, but hadn't attempted suicide until yesterday. Yesterday she didn't feel good because she had been arguing with her at 9pm and then at 12am she tried to commit suicide by swallowing 10 pills of 's clonazepam. She said she felt like she didn't care what happened to her. She did not tell anyone or write a suicide note. The son brought her to the hospital. She says she is doing a little better today. She does not have suicidal ideation, she does not have homicidal ideations. She has auditory hallucinations that tell her to kill herself sometimes. Pt says she has paranoia, as if someone is following or watching her. She experiences anxiety, especially when out in public. She says she worries a lot. The anxiety started 2 years ago when her youngest son joined the army. She does not take any medication other than Dibuterol for asthma. Consultations:: List each consultation separately and include: 1. Reason for request. 2. Findings. 3. Follow-up Summary of Hospital Course include:: 1. Description of specific treatment plan utilized for patients during their course of treatmen. 2. Summarize the time- course for resolution of acute symptoms and/or regressed behaviors. 3. Describe issues identified and worked on during hospitalization. 4. Describe medication utilized. 5. Describe medical problems identified and treated. 6. Reassessment of suicide risk - Diagnosis (1) Major depressive disorder Current Visit: Yes Status: Acute - Final Diagnosis (DSM 5) Condition upon Discharge: STABLE DSM 5: Major Depressive Disorder, single with psychotic symptoms, severe Generalized Anxiety Disorder Disposition: HOME/ ROUTINE Follow-up Treatment Plan: The pt is seen, chart reviewed, case discussed with staff. [id number] mg PO daily Atarax 25 mg PO Q6 PRN Mirtazapine 30 mg Trazadone 50 mg Support and psychoeducation given, CBT and [place] used briefly No new symptoms reported, improving slowly and needs more time No SEs from medications, risks discussed. After care discussed Prescriptions/Medication Reconciliation: Escitalopram [Lexapro] 20 mg PO DAILY #60 tab Mirtazapine [Remeron] 45 mg PO HS #30 tab traZODone [Desyrel] 50 mg PO HS PRN #30 tab PRN Reason: Insomnia
== END 2018-03-11 12:45 | disposition home or self-care (01) | DRG 430 ==
LOC: EEVIPCON 08:19 → C.ER 08:19 → C.9E 10:47 → EEVIPCON 10:47 → C.6T 13:18 → OBSVTOIN 03-04 09:56 → C.5E 03-04 09:56
PROVIDERS: ADMIT Psychiatry & Neurology Psychiatry; ATTEND Psychiatry & Neurology Psychiatry
PROC: GZHZZZZ Group Psychotherapy (ICD-10-PCS; principal; 2018-03-04)
DX: F32.3 Major depressive disorder, single episode, severe with psychotic features (principal); J45.909 Unspecified asthma, uncomplicated; F41.1 Generalized anxiety disorder; F22 Delusional disorders; F12.10 Cannabis abuse, uncomplicated